=== PATIENT | female | born 2000 | race Caucasian/White ===

== ENCOUNTER 2020-06-19 13:24 | Emergency (ER) | payer OTHER, SELFPAY ==
--- NOTE | ~2020-06-19 | CT_ITS ---
EXAMINATION: CT soft tissue neck w con DATE: 06/19/2020 15:02 INDICATION: Left facial swelling. TECHNIQUE: Computed tomography (CT) of the neck was performed with 75 mL Omnipaque-350 intravenous co ntrast. Automated exposure control and iterative reconstruction technique were employed. The dose-ekaterina gth product was 550.20 mGy-cm. COMPARISON: None FINDINGS: Tooth 2 is broken. There is a carious lesion of tooth 3. There is a carious lesion of tooth 15. Tooth 17 is broken with periapical lucencies. Tooth 19 demonstrates a carious lesion and periapi jewel lucencies. Tooth 30 is broken with periapical lucencies. Tooth 31 demonstrates a carious lesion. There is subcutaneous edema in left cheek. There is an 11 x 2 mm subperiosteal abscess superficial to tooth 19. There is mild bilateral high internal jugular chain lymphadenopathy. There is a mildly enl arged left submandibular lymph node. The adenoids, palatine tonsils, lingual tonsils are enlarged. Th ere is a mucous retention cyst in left maxillary sinus. There is kyphosis of cervical spine. IMPRESSION: 1. Dental disease with subperiosteal abscess superficial to tooth 19. 2. Mild bilateral cervical lymphadenopathy, likely reactive. Reviewed, dictated and finalized at location A. TS DIRECTOR
[2020-06-19 13:27] VITALS: BP 132/76; PULSE 80; RESP 18; TEMP 36.6; O2SAT 100
[2020-06-19 13:46] VITALS: BP 111/61; PULSE 75; RESP 20; TEMP 36.7; O2SAT 100
[2020-06-19 14:22] LABS: Basophils Absolute Auto 0.1 K/mm3 (0.0-0.1); Basophils Percent Auto 0.5 % (0.2-1.2); Eosinophils Absolute Auto 0.1 K/mm3 (0-0.3); Eosinophils Percent Auto 0.8 % (0-4.4); Hemoglobin 12.3 g/dL (12.0-15.0); Immature Granulocyte Absolute 0.04 K/mm3 (0.00-0.031); Immature Granulocyte Percent A 0.3 % (0-0.5); Lymphocytes Absolute Auto 1.62 K/mm3 (0.9-3.2); Mean Corpuscular HGB Conc 32.4 g/dl (32-36); Mean Corpuscular Hemoglobin 28.5 pg (26-34); Monocytes Absolute Auto 0.9 K/mm3 (0.1-0.6); Monocytes Percent Auto 7.3 % (2.6-8.5); Neutrophils Absolute Auto 9.7 K/mm3 (1.3-6.7); Neutrophils Percent Auto 78.1 % (45.5-73.1); Platelet Count Result 242 k/mm3 (150-375); Red Blood Count 4.32 M/mm3 (4.2-5.4); Red Cell Distribution Width 13.2 % (11.5-14.5); White Blood Count 12.5 K/mm3 (4.5-10.0)
[2020-06-19 14:34] LABS: Alanine Aminotransferase 9 U/L (4-35); Albumin Level 4.1 g/dL (3.5-5.1); Alkaline Phosphatase 93 U/L (38-126); Anion Gap 1 mmol/L (8-16); Aspartate Amino Transferase 12 U/L (14-36); Bilirubin,Total 0.3 mg/dL (0.2-1.3); Blood Urea Nitrogen 13 mg/dL (7-17); Calcium 9.2 mg/dL (8.4-10.2); Carbon Dioxide 31 mmol/L (22-30); Chloride 107 mmol/L (98-107); Estimated CRCL calculation 143 ml/min; Estimated Glomerular Filt Rate > 60; Glucose 94 mg/dL (65-105); Potassium 3.7 mmol/L (3.4-5.0); Sodium 139 mmol/L (137-145)
[2020-06-19] MEDS: KETOROLAC 15 MG/ML VIAL (*BKC) IV PUSH (15:10)
[2020-06-19] MEDS: DEXAMETHASONE SOD PHOS INJ 4 MG/ML VIAL 10 MG IV PUSH (15:10)
[2020-06-19 15:27] VITALS: BP 126/68; PULSE 65; RESP 17; O2SAT 99
--- NOTE | 2020-06-19 16:59 | WPDCN ---
Assessment and Plan Assessment and plan (1) Tooth abscess: Code(s): K04.7 - Periapical abscess without sinus Status: Acute Assessment and Plan: Bedside I and D performed. Scant turbid purulence noted. Recommend tooth removal [place]. Clindamycin 300mg tid x7 days. Please -have the patient call with any and all questions. [phone]. Would also recommend peridex qid after meals and before bed. HPI Data of Consult Date/Time: 06/19/20 16:59 Primary Care Provider: PNEUMATIC TESTER PHYSICIAN Consult Narrative Narrative: Marlena Cabrera is a 19 year old female with odontogenic abscess. Left lower near tooth 19. CT reviewed early abscess formation per my read. Pt has been on amoxicilin and augmentin for several days. Review of Systems Constitutional: Constitutional: Denies fatigue, Denies fever(s) and Denies lethargy Eyes: Eyes: Denies blurry vision and Denies change in vision ENT: Reports as per HPI Cardiovascular: Cardiovascular: Denies chest pain Respiratory: Respiratory: Denies cough Endocrine: Endocrine: Denies fatigue Hematologic/Lymphatic: Hematologic/Lymphatic: Denies easy bleeding, Denies easy bruising and Denies lymphadenopathy Allergic/Immunologic: Allergic/Immunologic: Denies seasonal rhinorrhea Meds Home Medications and Allergies Home Medications Medication Instructions Recorded Confirmed Type clindamycin HCl [Cleocin HCl] 300 mg PO Q8H #30 cap 06/19/20 Rx Allergies Allergy/AdvReac Type Severity Reaction Status Date / Time No Known Allergies Allergy Verified 06/19/20 13:49 Vital Signs Vital Signs - 24 hr 06/19/20 13:27 06/19/20 13:46 06/19/20 15:27 Temperature 36.6 C 36.7 C Pulse Rate 80 75 65 Respiratory Rate 18 20 17 Blood Pressure 132/76 111/61 126/68 Pulse Oximetry 100 100 99 Exam Const: General: cooperative, healthy appearing, comfortable, well developed and alert HENMT: Head: normal to inspection, normocephalic and atraumatic Ears: hearing grossly normal bilaterally, external ears normal, TM's normal bilaterally and EAC's normal General nose exam: Normal external nose present, Normal nares present, No nasal polyps present, Normal nasal mucous membranes and turbinates present and Normal septum present Face and sinus: normal facial exam Mouth: Yes Normal oral and palatal mucosa present, Yes lip normal, Yes tongue normal, Yes oropharynx normal and Yes moist mucous membranes Teeth and gingiva: abnormal dentition (caries present) and gingiva normal Throat: posterior oropharynx normal, tonsils normal and uvula midline Other: Left sided edema. no fluctuance. Tiffany facial vs neck. Eyes: General: appearance normal, both eyes and all related structures Periorbital: periorbital findings normal Eyelids: eyelids normal Conjunctivae: conjunctivae normal Sclera: sclerae normal Neck: Neck: not normal to visual inspection, full ROM and lymphadenopathy noted Thyroid: thyroid normal Lymphatic: no lymphadenopathy noted Resp: Effort & Inspection: normal respiratory effort and able to speak in complete sentences Cardio: Jugular venous distension: no JVD Neuro: Cranial nerves: Yes CN's II-XII intact bilaterally Results Labs CBC & Chem 7: 06/19/20 14:16 06/19/20 14:16 Labs: Short CBC 06/19/20 Range/Units 14:16 WBC 12.5 H (4.5-10.0) K/mm3 Hgb 12.3 (12.0-15.0) g/dL Hct 38.0 (37.0-47.0) % Plt Count 242 (150-375) k/mm3 BMP 06/19/20 14:16 Sodium 139 Potassium 3.7 Chloride 107 Carbon Dioxide 31 H BUN 13 Creatinine 0.70 Glucose 94 Calcium 9.2 Liver Function 06/19/20 Range/Units 14:16 Total Bilirubin 0.3 (0.2-1.3) mg/dL AST 12 L (14-36) U/L ALT 9 (4-35) U/L Alkaline Phosphatase 93 (38-126) U/L Albumin 4.1 (3.5-5.1) g/dL
--- NOTE | 2020-06-19 17:04 | ED.DENTAL ---
HPI - Dental/Oral General Chief complaint: Dental/Oral Stated complaint: tooth absess Time Seen by Provider: 06/19/20 13:39 Source: patient Mode of arrival: ambulatory Limitations: no limitations History of Present Illness HPI Narrative: Patient presents with chief complaint of 4 days of left-sided worsening facial swelling and pain. Patient states she has been seen at [facility] twice and at the urgent care and instructed to present to the emergency department. Patient states originally she is placed on amoxicillin and she was switched to Augmentin but the swelling and pain continues to increase. Patient states she did receive a pain shot which helped the pain slightly yesterday but now it has returned. She reports the swelling is worsening. She denies fever, chills, nausea, vomiting, diarrhea. Patient is not sure which tooth is causing the issue. She denies any drainage. Patient states she has been prescribed tramadol for pain from the ER. Related Data Allergies Allergy/AdvReac Type Severity Reaction Status Date / Time No Known Allergies Allergy Verified 06/19/20 13:49 Review of Systems Review of Systems: Narrative: CONSTITUTIONAL: Denies fever, chills, or sweats. EYES: Denies visual changes, redness, or discharge. ENT: Reports dental pain and facial swelling denies rhinorrhea, congestion, sore throat, or otalgia. CARDIOVASCULAR: Denies chest pain, palpitations, or edema. RESPIRATORY: Denies cough or dyspnea. GASTROINTESTINAL: Denies abdominal pain, nausea, vomiting, or diarrhea. GENITOURINARY: Denies dysuria or hematuria. SKIN: Denies rash or itching. MUSCULOSKELETAL: Denies back pain, joint pain, or myalgia. NEUROLOGIC: Denies headache, numbness, dizziness, or weakness. PSYCHIATRIC: Denies anxiety or depression. Exam Narrative: Exam Narrative: GENERAL: Well-appearing, well-nourished, and in no acute distress. Obese. HEAD: Normocephalic, atraumatic. EYES: PERRLA and EOMI. ENT: Nares clear, no rhinorrhea or epistaxis. Mucous membranes moist. Oropharynx without tonsillar hypertrophy exudate or other lesions. Bilateral TMs pearly liu nonbulging. Diffuse dental injury and cavities. No abscess seen at the gumline. No drainage or bleeding noted. Moderate swelling to the left lower jaw NECK: Submandibular nodes normal saline. Supple. Range of motion intact. CHEST: Clear to auscultation. No respiratory distress. No wheezes rales or rhonchi HEART: Regular rate and rhythm. EXTREMITIES: Normal range of motion. No edema. SKIN: Warm, dry, no rash. NEURO: No focal deficits. Alert and oriented x3. PSYCH: Normal mood and affect. Course Vital Signs Vital signs: Vital Signs Temperature 97.8 F 06/19/20 13:27 Pulse Rate 80 06/19/20 13:27 Respiratory Rate 18 06/19/20 13:27 Blood Pressure 132/76 06/19/20 13:27 Pulse Oximetry 100 06/19/20 13:27 Temperature 98.1 F 06/19/20 13:46 Pulse Rate 65 06/19/20 15:27 Respiratory Rate 17 06/19/20 15:27 Blood Pressure 126/68 06/19/20 15:27 Pulse Oximetry 99 06/19/20 15:27 MDM - Dental/Oral MDM Narrative Medical decision making narrative: Dr Joaquin drained patient's abscess in the ER. He wants the patient put on clindamycin 300 mg 3 times daily for 10 days and to use the urinalysis Cleocin mouthwash 4 times a day. He states that he instructed the patient on follow-up instructions with his office as well as the need to follow-up with her dentist to have her dentition addressed. He instructed her to be sure to be evaluated if her symptoms do not improve in 24 to 48 hours. Differential Diagnosis Differential diagnosis: Likely gingival abscess, dental caries, toothache, dental abscess, fracture of tooth and aphthous ulcer Lab Data Result diagrams: 06/19/20 14:16 06/19/20 14:16 Labs: Lab Results 06/19/20 06/19/20 Range/Units 14:16 14:16 WBC 12.5 H (4.5-10.0) K/mm3 RBC 4.32 (4.2-5.4) M/mm3 Hgb 12.3 (12.0-15.0)
--- NOTE | 2020-06-19 17:05 | PM.PROC ---
Procedure Note - Detailed Date of procedure: 06/19/20 Pre-op diagnosis: tooth absess Left sided mandibular odontogenic abscess Post-op diagnosis: same Procedure performed: I and D of abscess Description of procedure: Patient correctly identified. Consent obtained. Region anesthetized with 3cc of 1 percent with 100,000 parts epi. Opened with 11 blade and widely dissected with curved hemostat. scant purulence noted. Bleeding acceptable. Patient tolerated the procedure well. No complications. Anesthesia: local Surgeon: Eric Joaquin MD Estimated blood loss (mL): 5 Complications: No immediate complications Condition: stable Disposition: other (ER)
[2020-06-19] MEDS: MORPHINE SULFATE (*CRX) 2 MG/ML INJ IV PUSH (18:07)
[2020-06-19 18:19] VITALS: BP 146/93; PULSE 66; RESP 16; O2SAT 99
== END 2020-06-19 18:24 | disposition home or self-care (01) ==
PROVIDERS: Physician Assistant; Emergency Provider Emergency Medicine
DX: K04.7 Periapical abscess without sinus (principal)
CPT/HCPCS: 36415; 41800; 70491; 80053; 81025; 85025; 96374; 96375; 99284; J1100; J1885; J2270; Q9967

== ENCOUNTER 2020-06-20 23:15 | Emergency (ER) | payer OTHER, SELFPAY ==
[2020-06-20 23:16] VITALS: BP 135/62; PULSE 75; RESP 16; TEMP 36.3; O2SAT 95
--- NOTE | 2020-06-21 00:39 | ED.DENTAL ---
HPI - Dental/Oral General Chief complaint: Dental/Oral Stated complaint: abcess tooth Time Seen by Provider: 06/21/20 00:26 Source: patient Mode of arrival: ambulatory Limitations: no limitations History of Present Illness HPI Narrative: Patient is a 19-year-old female with dental abscess that returns to emergency department for evaluation patient has been seen multiple times for this the last of which was yesterday had I&D by ENT patient on arrival to emergency department today is in no distress resting comfortably notes now there is a small bubble along the gumline of the decayed tooth patient is currently on antibiotics and is already had I&D as noted by ENT patient denies fever chills nausea vomiting or URI symptoms or other complaints presents in no distress and does not appear uncomfortable Related Data Allergies Allergy/AdvReac Type Severity Reaction Status Date / Time No Known Allergies Allergy Verified 06/19/20 13:49 Review of Systems Review of Systems: All systems reviewed & are unremarkable except as noted in HPI and below PMFSH Past Medical History Medical History (Updated 06/21/20 @ 00:48 by Christopher Fernandez PA-C) Obesity Social History Social History (Updated 06/21/20 @ 00:41 by Christopher Fernandez PA-C) Smoking status: Current every day smoker Exam Narrative: Exam Narrative: GENERAL: Well-appearing, well-nourished, and in no acute distress. HEAD: Normocephalic, atraumatic. EYES: PERRLA and EOMI. ENT: Nares clear, no rhinorrhea or epistaxis. Mucous membranes moist. Patient with small bubble along the lateral gumline of her decayed tooth left lower jawline consistent with abscess no other abnormalities of the oropharynx NECK: Supple. No adenopathy or masses. EXTREMITIES: Normal range of motion. No edema. SKIN: Warm, dry, no rash. NEURO: No focal deficits. Alert and oriented x3. PSYCH: Normal mood and affect. Course Course Emergency Course: Patient in the room in no distress aware of case findings treatment plan diagnosis agreeing to follow-up with ENT and given dentistry referrals Vital Signs Vital signs: Vital Signs Temperature 97.3 F L 06/20/20 23:16 Pulse Rate 75 06/20/20 23:16 Respiratory Rate 16 06/20/20 23:16 Blood Pressure 135/62 06/20/20 23:16 Pulse Oximetry 95 06/20/20 23:16 Temperature 97.3 F L 06/20/20 23:16 Pulse Rate 75 06/20/20 23:16 Respiratory Rate 16 06/20/20 23:16 Blood Pressure 135/62 06/20/20 23:16 Pulse Oximetry 95 06/20/20 23:16 Procedures Abscess I/D oral: Date of Incision: 06/21/20 Time of Incision: 00:46 Side (if applicable): left Technique: other (18-gauge needle) Irrigation: No Packing used?: none I&D Results: Pus MDM - Dental/Oral MDM Narrative Medical decision making narrative: Patients pain and complaint coupled with physical findings are consistent with dentalgia. There are no focal signs of space occupying lesions that are compromising to the airway. The floor of the mouth is soft with no signs of Jens Angina. Patient is without trismus or drooling and able to swallow secretions. Patient is felt appropriate for discharge home with dental follow up. Discharge Plan Discharge Clinical Impression: Abscess, dental Patient Disposition: Home, Self-Care Condition: Stable Instructions: Antibiotic Form, Dental Abscess (ED) Additional Instructions: Follow-up with ear nose and throat and dentistry as planned. Go to ER for shortness of breath, difficulty breathing, chest pain, fever/chills, weakness, nauseau/vomitting, unable to swallow or open the mouth etc. or any other concerns. Stay well-hydrated Take any prescribed medications as directed. Follow patient education sheets If you do not have a drug allergy to tylenol or motrin and can tolerate it then take tylenol or motrin as needed for discomfort/pain. Prescriptions: No Action clindamycin HCl [Cleocin HCl]
[2020-06-21 01:19] VITALS: BP 131/73; PULSE 71; RESP 18; O2SAT 98
== END 2020-06-21 01:21 | disposition home or self-care (01) ==
PROVIDERS: Emergency Provider Emergency Medicine
DX: K04.7 Periapical abscess without sinus (principal); E66.9 Obesity, unspecified; Z68.42 Body mass index [BMI] 45.0-49.9, adult
CPT/HCPCS: 41800; 99282

== ENCOUNTER 2020-07-12 18:22 | Emergency (ER) | payer OTHER, SELFPAY ==
[2020-07-12 18:28] VITALS: BP 136/80; PULSE 84; RESP 17; TEMP 35.8; O2SAT 100
[2020-07-12 19:07] LABS: Basophils Absolute Auto 0.1 K/mm3 (0.0-0.1); Basophils Percent Auto 0.6 % (0.2-1.2); Eosinophils Absolute Auto 0.2 K/mm3 (0-0.3); Eosinophils Percent Auto 1.5 % (0-4.4); Hematocrit 39.5 % (37.0-47.0); Hemoglobin 12.7 g/dL (12.0-15.0); Immature Granulocyte Absolute 0.06 K/mm3 (0.00-0.031); Immature Granulocyte Percent A 0.5 % (0-0.5); Lymphocytes Absolute Auto 2.35 K/mm3 (0.9-3.2); Lymphocytes Percent Auto 18.5 % (18.3-44.2); Mean Corpuscular HGB Conc 32.2 g/dl (32-36); Mean Corpuscular Hemoglobin 28.3 pg (26-34); Mean Corpuscular Volume 88.2 fl (80-100); Mean Platelet Volume 10.5 fl (7.4-10.4); Monocytes Absolute Auto 0.7 K/mm3 (0.1-0.6); Monocytes Percent Auto 5.4 % (2.6-8.5); Neutrophils Absolute Auto 9.3 K/mm3 (1.3-6.7); Neutrophils Percent Auto 73.5 % (45.5-73.1); Platelet Count Result 273 k/mm3 (150-375); Red Blood Count 4.48 M/mm3 (4.2-5.4); Red Cell Distribution Width 13.6 % (11.5-14.5); White Blood Count 12.7 K/mm3 (4.5-10.0)
[2020-07-12 19:20] LABS: Alanine Aminotransferase 11 U/L (4-35); Albumin Level 4.3 g/dL (3.5-5.1); Alkaline Phosphatase 108 U/L (38-126); Anion Gap 6 mmol/L (8-16); Aspartate Amino Transferase 16 U/L (14-36); Bilirubin,Total 0.2 mg/dL (0.2-1.3); Blood Urea Nitrogen 13 mg/dL (7-17); Calcium 8.9 mg/dL (8.4-10.2); Carbon Dioxide 30 mmol/L (22-30); Chloride 105 mmol/L (98-107); Estimated CRCL calculation 120 ml/min; Estimated Glomerular Filt Rate > 60; Glucose 87 mg/dL (65-105); Lipase 44 U/L (23-300); Sodium 141 mmol/L (137-145)
[2020-07-12 19:24] LABS: Add Urine Microscopic? YES; Appearance Urine Cloudy (Clear); Bilirubin Urine Negative (Negative); Blood Urine 2+ (Negative); Color Urine Yellow (Yellow); Glucose Urine UA Negative (Negative); Ketones Urine Negative (Negative); Leukocyte Esterase Ur Trace LEU/UL (Negative); Mucus Urine Rare /lpf; Nitrate Urine Negative (Negative); Protein Urine 2+ mg/dL (Negative); RBC Urine >75 /hpf (0-2); Specific Grav Ur 1.029 (1.001-1.035); Squamous Epithelial Cell Urine Many /hpf (Few)
--- NOTE | 2020-07-12 19:42 | ED.GENADULT ---
HPI - General Adult General Chief complaint: Abdominal Pain Stated complaint: I have all the symptoms of but not preg? Time Seen by Provider: 07/12/20 18:54 Source: patient Mode of arrival: ambulatory Limitations: no limitations History of Present Illness HPI narrative: Patient presents for evaluation of -like symptoms. Patient states that she has been having some bloating, food cravings, intermittent pelvic cramping and started her menstrual cycle this week. Patient states that she had not had a menstrual period in 4 months, but has been diagnosed with PCOS. Patient states that she went to [facility] and had STD and STI testing as well as testing which all came back negative. Patient states that she would like a second opinion. Patient denies any pain at this time. Patient has been able to eat and drink without any issues. Patient does not have vomiting, diarrhea, chest pain, shortness of breath, fever, chills, constipation. Related Data Home Medications Medication Instructions Recorded Confirmed No Home Medications 07/12/20 07/12/20 Allergies Allergy/AdvReac Type Severity Reaction Status Date / Time No Known Allergies Allergy Verified 06/19/20 13:49 Review of Systems Review of Systems: Narrative: CONSTITUTIONAL: Denies fever, chills, or sweats. EYES: Denies visual changes, redness, or discharge. ENT: Denies rhinorrhea, congestion, sore throat, or otalgia. CARDIOVASCULAR: Denies chest pain, palpitations, or edema. RESPIRATORY: Denies cough or dyspnea. GASTROINTESTINAL: Reports menstrual bleeding irregularity. Denies abdominal pain, nausea, vomiting, or diarrhea. GENITOURINARY: Denies dysuria or hematuria. SKIN: Denies rash or itching. MUSCULOSKELETAL: Denies back pain, joint pain, or myalgia. NEUROLOGIC: Denies headache, numbness, dizziness, or weakness. PSYCHIATRIC: Denies anxiety or depression. PMFSH Past Medical History Medical History (Updated 07/12/20 @ 19:44 by Radha Morales PA-C) Obesity Social History Social History (Updated 06/21/20 @ 00:41 by Christopher Fernandez PA-C) Smoking status: Current every day smoker Gender identity (if verbalized by the patient): Female Exam Narrative: Exam Narrative: GENERAL: Well-appearing, well-nourished, and in no acute distress. Patient denies any smoking without any signs of discomfort. Patient is obese. Patient is no strongly of marijuana. HEAD: Normocephalic, atraumatic. EYES: PERRLA and EOMI. ENT: Nares clear, no rhinorrhea or epistaxis. Mucous membranes moist. Oropharynx without tonsillar hypertrophy exudate or other lesions. Bilateral TMs pearly liu nonbulging NECK: Supple. No adenopathy or masses. CHEST: Clear to auscultation. No respiratory distress. No wheezes rales or rhonchi HEART: Regular rate and rhythm. No murmur heard. Normal peripheral pulses. ABDOMEN: Soft, nontender to deep palpation in all quadrants. No sign of ovarian tenderness or torsion, nondistended, normal active bowel sounds. EXTREMITIES: Normal range of motion. No edema. SKIN: Warm, dry, no rash. NEURO: No focal deficits. Alert and oriented x3. PSYCH: Normal mood and affect. Course Vital Signs Vital signs: Vital Signs Temperature 96.5 F L 07/12/20 18:28 Pulse Rate 84 07/12/20 18:28 Respiratory Rate 17 07/12/20 18:28 Blood Pressure 136/80 07/12/20 18:28 Pulse Oximetry 100 07/12/20 18:28 Temperature 96.5 F L 07/12/20 18:28 Pulse Rate 96 07/12/20 20:11 Respiratory Rate 16 07/12/20 20:11 Blood Pressure 99/57 L 07/12/20 20:11 Pulse Oximetry 100 07/12/20 20:11 Medical Decision Making MDM Narrative Medical decision making narrative: Discussed with the patient that her test was negative. Patient is to follow-up with her EYE SURGEON for further investigation into her symptoms. Patient denies taking any daily medications. Patient does not have any symptoms or discomfort at this time. Patient
[2020-07-12 20:11] VITALS: BP 99/57; PULSE 96; RESP 16; O2SAT 100
== END 2020-07-12 20:12 | disposition home or self-care (01) ==
PROVIDERS: Emergency Medicine; Emergency Provider Emergency Medicine
DX: N92.6 Irregular menstruation, unspecified (principal); Z32.02 Encounter for pregnancy test, result negative
CPT/HCPCS: 36415; 80053; 81001; 81025; 83690; 85025; 99283

== ENCOUNTER 2020-09-02 07:23 | Emergency (ER) | payer OTHER, SELFPAY ==
--- NOTE | ~2020-09-02 | CT_ITS ---
EXAMINATION: CT abdomen pelvis w con DATE: 09/02/2020 08:51 INDICATION: Flank pain TECHNIQUE: Computed tomography (CT) of the abdomen and pelvis was performed with 100 mL Omnipaque-350 intravenous contrast. Automated exposure control and iterative reconstruction technique were employe d. The dose-length product was 1387.41 mGy-cm. COMPARISON: None FINDINGS: Groundglass opacities in the dependent aspect of the lower lobes with small regions of developing con solidation in the right lower lobe suspicious for pneumonia. Heart size is normal. No pericardial or pleural effusion. Focal hepatic steatosis at the ligamentum teres. Subtle peripheral calcification at a gallstone within the otherwise normal-appearing gallbladder. Spleen, pancreas and bilateral adrena l glands are normal. 2 mm nonobstructing stone at the upper pole of the right kidney and at least par tially obstructing 2 mm stone at the left ureteropelvic junction with mild left hydronephrosis. Very slightly delayed left nephrogram. Bowels including the appendix are normal. 4.4 cm left adnexal cyst. Bladder, uterus and right adnexa are unremarkable. No free intraperitoneal gas or fluid. No patholog ically enlarged abdominal or pelvic lymphadenopathy. Bones are unremarkable. IMPRESSION: 1. Bilateral nephrolithiasis with at least partially obstructing 2 mm stone at the left ureteropelvic junction with mild left hydronephrosis. 2. Groundglass opacities in bilateral lower lobes with small regions of consolidation in the right lo wer lobe suspicious for pneumonia or aspiration. Reviewed, dictated and finalized at location A. IMPRESSION: 1. Bilateral nephrolithiasis with at least partially obstructing 2 mm stone at the left ureteropelvic junction with mild left hydronephrosis. 2. Groundglass opacities in bilateral lower lobes with small regions of consoli dation in the right lower lobe suspicious for pneumonia or aspiration.
--- NOTE | ~2020-09-02 | XR_ITS ---
EXAMINATION: XR chest 2V DATE: 09/02/2020 10:02 INDICATION: Bilateral lower lobe infiltration. TECHNIQUE: PA and lateral views of the chest were obtained. COMPARISON: None FINDINGS: The lungs are clear with no focal airspace opacities, pulmonary edema, pleural effusion or pneumothor ax. The cardiomediastinal silhouette is normal. Mild thoracic spondylosis. IMPRESSION: 1. No acute cardiopulmonary disease. Reviewed, dictated and finalized at location A.
[2020-09-02 07:26] VITALS: BP 132/73; PULSE 90; RESP 20; TEMP 36.5; O2SAT 100
--- NOTE | 2020-09-02 07:51 | PC.NURSE ---
pt states she took zofran and ibuprofen this morning.
[2020-09-02 08:16] LABS: Add Urine Microscopic? YES; Appearance Urine Cloudy (Clear); Bilirubin Urine Negative (Negative); Blood Urine 3+ (Negative); Color Urine Yellow (Yellow); Glucose Urine UA Negative (Negative); Ketones Urine Negative (Negative); Leukocyte Esterase Ur Negative LEU/UL (Negative); Mucus Urine Rare /lpf; Nitrate Urine Negative (Negative); Protein Urine 2+ mg/dL (Negative); RBC Urine >75 /hpf (0-2); Specific Grav Ur 1.025 (1.001-1.035); Squamous Epithelial Cell Urine Many /hpf (Few); WBC Urine 16-20 /hpf
[2020-09-02 08:25] LABS: Basophils Percent Auto 0.5 % (0.2-1.2); Eosinophils Absolute Auto 0.1 K/mm3 (0-0.3); Eosinophils Percent Auto 1.3 % (0-4.4); Hematocrit 37.7 % (37.0-47.0); Hemoglobin 11.9 g/dL (12.0-15.0); Immature Granulocyte Absolute 0.05 K/mm3 (0.00-0.031); Immature Granulocyte Percent A 0.7 % (0-0.5); Lymphocytes Absolute Auto 3.13 K/mm3 (0.9-3.2); Lymphocytes Percent Auto 41.5 % (18.3-44.2); Mean Corpuscular HGB Conc 31.6 g/dl (32-36); Mean Corpuscular Hemoglobin 28.2 pg (26-34); Mean Corpuscular Volume 89.3 fl (80-100); Mean Platelet Volume 9.6 fl (7.4-10.4); Monocytes Absolute Auto 0.5 K/mm3 (0.1-0.6); Monocytes Percent Auto 6.2 % (2.6-8.5); Neutrophils Absolute Auto 3.8 K/mm3 (1.3-6.7); Neutrophils Percent Auto 49.8 % (45.5-73.1); Platelet Count Result 170 k/mm3 (150-375); Red Blood Count 4.22 M/mm3 (4.2-5.4); Red Cell Distribution Width 15.4 % (11.5-14.5); White Blood Count 7.6 K/mm3 (4.5-10.0)
[2020-09-02 08:37] LABS: Anion Gap 2 mmol/L (8-16); Blood Urea Nitrogen 9 mg/dL (7-17); Calcium 8.5 mg/dL (8.4-10.2); Carbon Dioxide 28 mmol/L (22-30); Chloride 108 mmol/L (98-107); Estimated CRCL calculation 141 ml/min; Estimated Glomerular Filt Rate > 60; Glucose 82 mg/dL (65-105); Potassium 3.7 mmol/L (3.4-5.0); Sodium 138 mmol/L (137-145)
--- NOTE | 2020-09-02 08:46 | ED.ABDPAIN ---
HPI - Abdominal Pain General Chief Complaint: Abdominal Pain Stated Complaint: back, abd pain Time Seen by Provider: 09/02/20 08:23 Source: patient and RN notes reviewed Mode of arrival: ambulatory Limitations: no limitations History of Present Illness HPI narrative: Patient is 20 years old white female, morbidly obese presents with left abdominal pain started this morning. Patient is telling me that she have history of waking up almost every day in the morning for the last 2 weeks with nausea, abdominal bloating and vomiting. Patient believes the above symptoms because of panic attack and anxiety. Today woke up with different kind of pain as above. No history of abdominal surgery, history of depression and anxiety, patient smokes, drinks and uses marijuana. Patient reports a lot of stress lately. Mother had history of kidney stone. Patient denies any fever, chills, diarrhea, constipation, urinary symptoms, vaginal bleeding or discharge. Patient is sexually active, last menstrual period August 01. Related Data Allergies Allergy/AdvReac Type Severity Reaction Status Date / Time No Known Allergies Allergy Verified 06/19/20 13:49 Review of Systems Review of Systems: Narrative: CONSTITUTIONAL: Denies fever, chills, or sweats. EYES: Denies visual changes, redness, or discharge. ENT: Denies rhinorrhea, congestion, sore throat, or otalgia. CARDIOVASCULAR: Denies chest pain, palpitations, or edema. RESPIRATORY: Denies cough or dyspnea. GASTROINTESTINAL: Denies abdominal pain, nausea, vomiting, or diarrhea. GENITOURINARY: Denies dysuria or hematuria. SKIN: Denies rash or itching. MUSCULOSKELETAL: Denies back pain, joint pain, or myalgia. NEUROLOGIC: Denies headache, numbness, or weakness. PSYCHIATRIC: Denies anxiety or depression. PMFSH Past Medical History Medical History Obesity Social History Social History Smoking status: Current every day smoker Gender identity (if verbalized by the patient): Female Exam Narrative: Exam Narrative: General appearance: Well-developed, well-nourished Skin: Normal color Head: Normocephalic, nontraumatic Eyes: Clear conjunctiva ENT: Oropharynx normal, ears normal, nose normal Neck: Supple, nontender Chest and respiratory: Airway patent, no respiratory distress, no accessory muscle use Heart: Regular rate/rhythm Abdomen: Soft, moderate tenderness left lower quadrant and left upper quadrant. No guarding or rebound r, no organomegaly, quiet bowel sounds Vascular: Normal peripheral pulses, normal capillary refill. Musculoskeletal: Normal range of motion, nontender back Neurologic: Alert and oriented ?3, VP COMMUNICATIONS is normal as tested, no gross motor deficit Course Vital Signs Vital signs: Vital Signs Temperature 36.5 C 09/02/20 07:26 Pulse Rate 90 09/02/20 07:26 Respiratory Rate 20 09/02/20 07:26 Blood Pressure 132/73 09/02/20 07:26 Pulse Oximetry 100 09/02/20 07:26 Temperature 36.5 C 09/02/20 07:26 Pulse Rate 71 09/02/20 09:11 Respiratory Rate 18 09/02/20 09:11 Blood Pressure 116/63 09/02/20 09:11 Pulse Oximetry 100 09/02/20 09:11 MDM - Abdominal Pain MDM Narrative Medical decision making narrative: Left abdominal pain. Labs, CT abdomen pelvis with IV contrast, IV fluid, IV Dilaudid and Zofran ordered. Further plan to follow Differential Diagnosis Differential diagnosis: Likely abdominal pain, calculus of kidney, constipation, diverticulitis and other (Ovarian cyst) Lab Data Result diagrams: 09/02/20 08:08 09/02/20 08:08 Labs: Lab Results
[2020-09-02] MEDS: HYDROmorphone HCL INJ (*CRX) 1 MG/ML SYR 0.5 MG IV PUSH (08:56)
[2020-09-02] MEDS: ONDANSETRON INJ 4 MG/2 ML VIAL IV PUSH (08:57)
[2020-09-02] MEDS: SODIUM CHLORIDE 0.9% IV 1,000 ML 999 ML IV CONT (08:57)
[2020-09-02 09:11] VITALS: BP 116/63; PULSE 71; RESP 18; O2SAT 100
[2020-09-02] MEDS: KETOROLAC 30 MG/ML VIAL (*BKC) IV PUSH (10:30)
[2020-09-02] MEDS: TAMSULOSIN HCL 0.4 MG CAPSULE PO (10:31)
== END 2020-09-02 11:22 | disposition home or self-care (01) ==
PROVIDERS: Emergency Provider Emergency Medicine
DX: N13.2 Hydronephrosis with renal and ureteral calculous obstruction (principal); E66.01 Morbid (severe) obesity due to excess calories; Z68.42 Body mass index [BMI] 45.0-49.9, adult
CPT/HCPCS: 36415; 71046; 74177; 80048; 81001; 81025; 85025; 87086; 87088; 96361; 96374; 96375; 99284; A9270; J1170; J1885; J2405; J7030; Q9967

== ENCOUNTER 2020-09-06 07:18 | Day surgery (SDC) | payer OTHER, SELFPAY ==
[2020-09-06] VITALS (13 sets, daily range): BP systolic 113–136; BP diastolic 64–81; PULSE 55–100; RESP 15–22; TEMP 36.1–36.5; O2SAT 98–100
--- NOTE | ~2020-09-06 | XR_ITS ---
EXAMINATION: XR abdomen/kub 1V DATE: 09/06/2020 08:05 INDICATION: Kidney stone. TECHNIQUE: A supine view of the abdomen on 2 radiographs was obtained. COMPARISON: CT abdomen and pelvis 09/02/2020 FINDINGS: There are no dilated loops of bowel. There is a 2 mm stone in proximal left ureter at L2-L3 . IMPRESSION: 1. 2 mm stone in proximal left ureter at L2-L3. Reviewed, dictated and finalized at location B.
--- NOTE | ~2020-09-06 | XR_ITS ---
EXAMINATION: XR retrograde pyelo w/stent LT DATE: 09/06/2020 13:42 INDICATION: Left ureteral stent placement TECHNIQUE: Fluoroscopic images from a left ureteral stent placement are submitted for review. 24 seco nds of fluoroscopy time. 5 fluoroscopic images FINDINGS: There is a left ureteral stent projecting in expected position, with proximal [place] loop at the level of the renal pelvis. The distal aspect of the stent is not visualized. IMPRESSION: 1. Left internal ureteral stent placement. Please refer to real-time procedural findings for detail s. Reviewed, dictated and finalized at location A. IMPRESSION: 1. Left internal ureteral stent placement. Please refer to real-time procedur al findings for details.
--- NOTE | 2020-09-06 07:42 | ED.ABDPAIN ---
HPI - Abdominal Pain General Chief Complaint: Abdominal Pain Stated Complaint: L flank pain (known kidney stones) Time Seen by Provider: 09/06/20 07:42 Source: patient Mode of arrival: ambulatory Limitations: no limitations History of Present Illness HPI narrative: Patient is a 20-year-old female who presents for evaluation of left-sided flank pain, nausea and vomiting. Patient states she was diagnosed with a kidney stone at a previous visit to this facility, had been having improved pain with oral pain medication at home, but this morning awakened with severe left-sided abdominal pain with multiple episodes of nonbloody, nonbilious emesis. She denies fever, chills, dysuria or hematuria. No diarrhea or constipation. No right-sided pain. No chest pain, cough or shortness of breath. Related Data Allergies Allergy/AdvReac Type Severity Reaction Status Date / Time No Known Allergies Allergy Verified 06/19/20 13:49 Review of Systems Review of Systems: Narrative: CONSTITUTIONAL: Denies fever, chills, or sweats. ENT: Denies rhinorrhea, congestion, sore throat, or otalgia. CARDIOVASCULAR: Denies chest pain, palpitations, or edema. RESPIRATORY: Denies cough or dyspnea. GASTROINTESTINAL: Reports abdominal pain, nausea, vomiting, denies diarrhea GENITOURINARY: Denies dysuria or hematuria. SKIN: Denies rash or itching. MUSCULOSKELETAL: Denies back pain, joint pain, or myalgia. NEUROLOGIC: Denies headache, numbness, or weakness. [facility] Past Medical History Medical History (Updated 09/06/20 @ 08:47 by Olive Duran MD) Kidney stone Obesity Tooth abscess Social History Social History Smoking status: Current every day smoker Gender identity (if verbalized by the patient): Female Exam Narrative: Exam Narrative: GENERAL: Awake, alert, conversant, tearful HEAD: Normocephalic, atraumatic. EYES: PERRLA and EOMI. ENT: Nares clear, no rhinorrhea or epistaxis. Mucous membranes moist. NECK: Supple. CHEST: No respiratory distress, breathing even and non labored HEART: Regular rate, sinus rhythm ABDOMEN:Non distended, left lower quadrant tenderness, left flank tenderness, no overlying rash, no rebound, no guarding, no rigidity EXTREMITIES: Normal range of motion. No edema. SKIN: Warm, dry, no rash. NEURO:No focal deficits. Alert and oriented x3 Course Vital Signs Vital signs: Vital Signs Temperature 36.4 C L 09/06/20 07:38 Pulse Rate 77 09/06/20 07:38 Respiratory Rate 18 09/06/20 07:38 Blood Pressure 131/68 09/06/20 07:38 Pulse Oximetry 98 09/06/20 07:38 Temperature 36.4 C L 09/06/20 07:38 Pulse Rate 70 09/06/20 09:30 Respiratory Rate 18 09/06/20 09:30 Blood Pressure 127/70 09/06/20 09:30 Pulse Oximetry 99 09/06/20 09:30 MDM - Abdominal Pain MDM Narrative Medical decision making narrative: Patient presenting for evaluation of left flank pain, abdominal pain, nausea and vomiting that does seem related to her recent diagnosis of left-sided kidney stone. Patient with pain in this area. No hematuria, dysuria or fever. No other symptoms found on exam. Vital signs are stable. Patient was given IV fluids, antiemetic and pain medication. Renal stone protocol x-ray confirms 2 mm proximal ureteral stone. Given recurrence of pain, inability to tolerate oral intake and control pain with outpatient pain regimen, urology was consulted they will come to evaluate the patient in the ER today for possible stenting and further management. Pt to be taken to OR with urology. Differential Diagnosis Differential diagnosis: Likely calculus of kidney, diverticulitis, gastroenteritis and small bowel obstruction Medical Records Attestation: I reviewed the patient's medical records. Lab Data Attestation: I reviewed the patient's lab results. Result diagrams: 09/06/20 07:49 09/06/20 07:49 Labs: Lab Results 09/06/20
[2020-09-06 07:57] LABS: Basophils Absolute Auto 0.1 K/mm3 (0.0-0.1); Basophils Percent Auto 0.6 % (0.2-1.2); Eosinophils Absolute Auto 0.1 K/mm3 (0-0.3); Eosinophils Percent Auto 0.9 % (0-4.4); Hemoglobin 12.2 g/dL (12.0-15.0); Immature Granulocyte Absolute 0.03 K/mm3 (0.00-0.031); Immature Granulocyte Percent A 0.4 % (0-0.5); Lymphocytes Absolute Auto 2.76 K/mm3 (0.9-3.2); Lymphocytes Percent Auto 33.5 % (18.3-44.2); Mean Corpuscular HGB Conc 32.1 g/dl (32-36); Mean Corpuscular Hemoglobin 28.6 pg (26-34); Mean Platelet Volume 9.3 fl (7.4-10.4); Monocytes Absolute Auto 0.5 K/mm3 (0.1-0.6); Monocytes Percent Auto 6.6 % (2.6-8.5); Neutrophils Absolute Auto 4.8 K/mm3 (1.3-6.7); Platelet Count Result 195 k/mm3 (150-375); Red Blood Count 4.27 M/mm3 (4.2-5.4); Red Cell Distribution Width 15.2 % (11.5-14.5); White Blood Count 8.2 K/mm3 (4.5-10.0)
[2020-09-06 08:03] LABS: Add Urine Microscopic? YES; Appearance Urine Cloudy (Clear); Bilirubin Urine Negative (Negative); Blood Urine 2+ (Negative); Color Urine Yellow (Yellow); Glucose Urine UA Negative (Negative); Ketones Urine Negative (Negative); Leukocyte Esterase Ur Negative LEU/UL (Negative); Mucus Urine Rare /lpf; Nitrate Urine Negative (Negative); Protein Urine 1+ mg/dL (Negative); RBC Urine >75 /hpf (0-2); Specific Grav Ur 1.021 (1.001-1.035); Squamous Epithelial Cell Urine Many /hpf (Few); Urobilinogen Urine Negative mg/dL (<2.0)
[2020-09-06 08:06] LABS: Anion Gap 3 mmol/L (8-16); Blood Urea Nitrogen 11 mg/dL (7-17); Calcium 9.3 mg/dL (8.4-10.2); Carbon Dioxide 31 mmol/L (22-30); Chloride 106 mmol/L (98-107); Estimated CRCL calculation 142 ml/min; Estimated Glomerular Filt Rate > 60; Glucose 90 mg/dL (65-105); Potassium 4.1 mmol/L (3.4-5.0); Sodium 140 mmol/L (137-145)
[2020-09-06] MEDS: SODIUM CHLORIDE 0.9% IV 1,000 ML 999 ML IV CONT (08:14)
[2020-09-06] MEDS: HYDROmorphone HCL INJ (*CRX) 1 MG/ML SYR 0.5 MG IV PUSH ×3 (08:14→16:18)
[2020-09-06] MEDS: ONDANSETRON INJ 4 MG/2 ML VIAL IV PUSH ×2 (08:14→14:53)
--- NOTE | 2020-09-06 12:00 | WPDURCON ---
Assessment and Plan Assessment and plan (1) Left ureteral stone: Code(s): N20.1 - Calculus of ureter Status: Acute Assessment and Plan: Patient to go to the OR today with Dr. Orozco for: Cystoscopy, left ureteroscopy with stone extraction, possible left stent placement, possible holmium laser, retrograde pyelogram. Obtain consent, keep NPO. (2) Bilateral kidney stones: Code(s): N20.0 - Calculus of kidney Status: Acute Assessment and Plan: Bilateral 2mm stones, one in each kidney should be followed yearly by our office with a MALCOM, no further intervention to these stones at this time. Urology Consult Note HPI Date Seen: 09/06/20 Requesting Physician: Kev Orozco MD Primary Care Provider: DIVISION SERVICE MANAGER PHYSICIAN Consult Narrative Narrative: Marlena Cabrera is a 20 year old female who presented to the ER initially on 09/02/2020 with left flank pain that radiates to her abdomen. She was diagnosed via CT scan with a 2mm left UPJ stone and sent home with Flomax and pain medications to pass her stone. Unfortunately, her pain became more severe over the past few days and is now accompanied by nausea and vomiting. Her WBC is 8.2, creatinine is 0.70 and a KUB done this morning shows the 2mm stone in the UPJ in the left ureter without any change in position. Her urine culture was negative from 09/02/2020. She denies hematuria, dysuria or frequency. She has no other history of kidney stones or UTI's in the past. Review of Systems Cardiovascular: Cardiovascular: Reports no additional cardiovascular complaints Respiratory: Respiratory: Reports no additional respiratory complaints Gastrointestinal: Gastrointestinal: Reports abdominal pain, Reports nausea and Reports vomiting Genitourinary: Genitourinary: Denies hematuria, Denies dysuria, Reports flank pain and Denies urinary urgency [facility] Past Medical History Medical History Kidney stone Obesity Tooth abscess Social History Social History Smoking status: Current every day smoker Gender identity (if verbalized by the patient): Female Meds Home Medications and Allergies Home Medications Medication Instructions Recorded Confirmed Type hydrocodone-acetaminophen 1 tablet PO DAILY #20 tablet 09/02/20 Rx ondansetron HCl [Zofran] 4 mg PO Q6H PRN #10 tablet 09/02/20 Rx Allergies Allergy/AdvReac Type Severity Reaction Status Date / Time No Known Allergies Allergy Verified 06/19/20 13:49 Vital Signs Vital Signs - 24 hr 09/06/20 07:38 09/06/20 09:30 Temperature 97.5 F L Pulse Rate 77 70 Respiratory Rate 18 18 Blood Pressure 131/68 127/70 Pulse Oximetry 98 99 Exam Resp: Effort & Inspection: normal respiratory effort Cardio: Rate: regular rate GI: GI Palp: Yes Soft to palpation and Yes Tenderness to palpation present (GI) : General: Yes CVA tenderness on the left Extrem: General: no edema Results Labs CBC & Chem 7: 09/06/20 07:49 09/06/20 07:49 Labs: Short CBC 09/06/20 Range/Units 07:49 WBC 8.2 (4.5-10.0) K/mm3 Hgb 12.2 (12.0-15.0) g/dL Hct 38.0 (37.0-47.0) % Plt Count 195 (150-375) k/mm3 BMP 09/06/20 07:49 Sodium 140 Potassium 4.1 Chloride 106 Carbon Dioxide 31 H BUN 11 Creatinine 0.70 Glucose 90 Calcium 9.3 Urine 09/06/20 Range/Units 07:49 Urine Color Yellow (Yellow) Urine Appearance Cloudy H (Clear) Urine pH 6.0 (5.0-9.0) Ur Specific [place] 1.021 (1.001-1.035) Urine Protein 1+ H (Negative) mg/dL Urine Glucose (UA) Negative (Negative) mg/dL
--- NOTE | 2020-09-06 12:24 | WPDANESEPPF ---
Anes - Initial Pre Proc Eval Procedure: Operation Date: 09/06/20 13:00 Proposed Procedures p Cystoscopy, Left Retrograde Pyelogram, Left Ureteroscopy with Stone Extraction and Possible Stent Placement(Left) - Kev Orozco MD s Possible Holmium Laser Procedure - Kev Orozco MD Date/Time: 09/06/20 12:24 Surgeon: Kev Orozco MD Pre Op Diagnosis: L flank pain (known kidney stones) Patient Data Age: 20 Gender: F Height: 1.63 m Weight: 122.72 kg Last Vital Signs Temp 36.4 C L 09/06/20 07:38 Pulse 79 09/06/20 11:00 Resp 18 09/06/20 11:00 BP 128/78 09/06/20 11:00 Pulse Ox 100 09/06/20 11:00 Allergies Allergy/AdvReac Type Severity Reaction Status Date / Time No Known Allergies Allergy Verified 06/19/20 13:49 Home Medications Medication Instructions Recorded Confirmed Type hydrocodone-acetaminophen 1 tablet PO DAILY #20 tablet 09/02/20 Rx ondansetron HCl [Zofran] 4 mg PO Q6H PRN #10 tablet 09/02/20 Rx Laboratory Tests 09/06/20 09/06/20 09/06/20 07:49 07:49 07:49 WBC 8.2 K/mm3 K/mm3 (4.5-10.0) RBC 4.27 M/mm3 M/mm3 (4.2-5.4) Hgb 12.2 g/dL g/dL (12.0-15.0) Hct 38.0 % % (37.0-47.0) MCV 89.0 fl fl (80-100) MCH 28.6 pg pg (26-34) MCHC 32.1 g/dl g/dl (32-36) RDW 15.2 % H % (11.5-14.5) Plt Count 195 k/mm3 k/mm3 (150-375) MPV 9.3 fl fl (7.4-10.4) Immature Gran % (Auto) 0.4 % % (0-0.5) Neut % (Auto) 58.0 % % (45.5-73.1) Lymph % (Auto) 33.5 % % (18.3-44.2) [place] % (Auto) 6.6 % % (2.6-8.5) Eos % (Auto) 0.9 % % (0-4.4) Baso % (Auto) 0.6 % % (0.2-1.2) Lymph # (Auto) 2.76 K/mm3 K/mm3 (0.9-3.2) [place] # (Auto) 0.5 K/mm3 K/mm3 (0.1-0.6) Eos # (Auto) 0.1 K/mm3 K/mm3 (0-0.3) Baso # (Auto) 0.1 K/mm3 K/mm3 (0.0-0.1) Abs Immat Gran (auto) 0.03 K/mm3 K/mm3 (0.00-0.031) Absolute Neuts (auto) 4.8 K/mm3 K/mm3 (1.3-6.7) Absolute Nucleated RBC 0.0 K/mm3 K/mm3 (0.0-0.012) Nucleated RBC % 0.0 % % (0.0-0.2) Sodium 140 mmol/L mmol/L (137-145) Potassium 4.1 mmol/L mmol/L (3.4-5.0) Chloride 106 mmol/L mmol/L (98-107) Carbon Dioxide 31 mmol/L H mmol/L (22-30) Anion Gap 3 mmol/L L mmol/L (8-16) BUN 11 mg/dL mg/dL (7-17) Creatinine 0.70 mg/dL mg/dL (0.7-1.0) Estim Creat Clear Calc 142 ml/min ml/min Estimated GFR > 60 (59 - ) Glucose 90 mg/dL mg/dL (65-105) Calcium 9.3 mg/dL mg/dL (8.4-10.2) Urine Color Yellow (Yellow) Urine Appearance Cloudy H (Clear) Urine pH 6.0 (5.0-9.0) Ur Specific [place] 1.021 (1.001-1.035) Urine Protein 1+ mg/dL H mg/dL (Negative) Urine Glucose (UA) Negative mg/dL mg/dL (Negative) Urine Ketones Negative mg/dL mg/dL (Negative) Ur Blood (Man) 2+ H (Negative) Urine Nitrate Negative (Negative) Urine Bilirubin Negative (Negative) Urine Urobilinogen Negative mg/dL mg/dL (<2.0) Leukocyte Esterase Rfl Negative CRYSTAL/UL CRYSTAL/UL (Negative) Urine RBC >75 /hpf H /hpf (0-2) Urine WBC 4-6 /hpf H /hpf Ur Squamous Epith Cells Many /hpf H /hpf (Few) Urine Mucus Rare /lpf /lpf Patient hx anesthesia problems: none Family hx anesthesia problems: none PMFSH Past Medical History Medical History Kidney stone Obesity Tooth abscess Social History Social History Smoking status: Current every day smoker Gender identity (if verbalized by the patient): Female Anes -
[2020-09-06] MEDS: LACTATED RINGERS 1,000 ML 30 ML IV CONT (12:25)
--- NOTE | 2020-09-06 12:39 | WPDHPUPDATE1 ---
History and Physical Update Update Date/Time: 09/06/20 12:39 History and Physical has been reviewed, including an updated exam of the patient. There are NO changes in the patient's condition. Risks, benefits, and alternatives have been discussed and questions answered. Patient agrees to proceed with procedure. Proceed with cysto, left retrograde, left ureteroscopy with stone extraction, stent , possible laser.
[2020-09-06] MEDS: SCOPOLAMINE 1.5 MG PATCH TRANSDERM (12:50)
[2020-09-06] MEDS: ceFAZolin 3 GM/D5W 100 ML 100 ML IVPB (13:03)
--- NOTE | 2020-09-06 13:27 | SUR.PREOP ---
1327- All pre op charting, assessment, and Meds completed by Emy Rodriguez RN
[2020-09-06] MEDS: LIDOCAINE HCL 2% GEL UROJET 10 ML PKG MUCOUS MEM (13:33)
--- NOTE | 2020-09-06 13:38 | P.OP_ITS ---
Procedure Note - Detailed Date of procedure: 09/06/20 Pre-op diagnosis: L flank pain (known kidney stones) Left UPJ calculus Post-op diagnosis: same Procedure performed: Cystoscopy, left retrograde pyelogram, left ureteroscopy with holmium laser stone extraction and left ureteral stent placement 4.8 [place] contour Description of procedure: Patient is taken the operative suite and correctly identified. Once anesthesia was obtained she was placed in dorsal lithotomy position and prepped and draped usual sterile fashion. Twenty-two [place] scope was inserted in the bladder. There are no tumors noted. Left ureteral orifice was cannulated with a guidewire. The orifice was dilated with an 8/10 dilator. Mini flexible ureteroscope was inserted. The stone was visualized at the UPJ area which was impacted with the stone. We used a holmium laser fiber to fragment the stone in retrieved some of the pieces. This stone overall is extremely small. Nonetheless there was no residual stones noted in the ureter. Pyelogram was performed to confirm placement of the stent and a 4.8 [place] contour stent was placed with the proximal end coiled in the renal pelvis and the distal in the bladder. Bladder was drained. 2% viscous lidocaine was inserted urethra patient is taken recovery room stable condition. She will follow up in a week's time for stent removal. Anesthesia: GLMA Surgeon: Kev Orozco MD Drains: Yes Packing: No Pathology: yes Complications: No immediate complications Condition: stable Disposition: PACU
[2020-09-06] MEDS: fentaNYL CITRATE INJ (*CRX) 100 MCG/2 ML VIAL 25 MCG IV PUSH ×2 (14:05→14:09)
[2020-09-06] MEDS: diphenhydrAMINE HCl INJ 50 MG/ML VIAL 25 MG IV PUSH (15:11)
[2020-09-06] MEDS: oxyCODONE HCL (*CRX) 5 MG TAB IR PO (15:24)
[2020-09-06] MEDS: HYOSCYAMINE SULFATE 0.125 MG TABLET PO (16:19)
--- NOTE | 2020-09-06 17:08 | SUR.PHASEII ---
Patient was nauseated and experiencing a lot of pain in Phase 2. RN got an order for Benadryl, Dilaudid, and Levsin. Patient felt much better by the time of discharge.
== END 2020-09-06 17:00 | disposition home or self-care (01) ==
LOC: ANHED 09:38 → ANHSURGERY 10:01
PROVIDERS: Emergency Provider Emergency Medicine; Visit Provider Urology
PROC: (CPT 52352; principal; 2020-09-06 13:00)
PROC: (CPT 52356; 2020-09-06 13:00)
DX: N20.2 Calculus of kidney with calculus of ureter (principal); E66.01 Morbid (severe) obesity due to excess calories; Z68.42 Body mass index [BMI] 45.0-49.9, adult; F17.200 Nicotine dependence, unspecified, uncomplicated
CPT/HCPCS: 52356; 36415; 74018; 74420; 80048; 81001; 81025; 82365; 85025; 88300; 96361; 96374; 96375; 99285; A9270; C1769; C2617; J0690; J1170; J1200; J2250; J2405; J2704; J3010; J7030; J7120; Q9966

== ENCOUNTER 2020-09-07 19:27 | Emergency (ER) | payer OTHER, SELFPAY ==
[2020-09-07] VITALS (13 sets, daily range): BP systolic 111–138; BP diastolic 53–105; PULSE 66; RESP 18; TEMP 36.8; O2SAT 93–100
--- NOTE | ~2020-09-07 | XR_ITS ---
XR abdomen/kub 1V 09/07/2020 21:00 INDICATION: Difficulty urinating. Stent placement. TECHNIQUE: KUB COMPARISON: 09/06/2020 FINDINGS: Bowel gas pattern is normal. There is a left internal ureteral stent in expected position. There is no evidence of free air, mass, organomegaly, ascites or obstruction. No abnormal calculi ar e seen. The bones appear intact. Moderate colonic fecal loading. IMPRESSION: 1: No acute abdominal abnormality identified. Reviewed, dictated and finalized at location A.
--- NOTE | 2020-09-07 20:55 | ED.ABDPAIN ---
HPI - Abdominal Pain General Chief Complaint: Urogenital-Female Stated Complaint: pain after stents place for kidney stones Time Seen by Provider: 09/07/20 19:38 Source: patient Mode of arrival: ambulatory Limitations: no limitations History of Present Illness HPI narrative: Patient is a 20 year old female who presents with left abdominal pain. Patient reports ureteral stent placement yesterday and reports stabbing pain with urinating and nausea from pain. Patient reports she has been taking hydrocodone and zofran without relief. Patient is tearful, denies other significant medical history. MD elicited complaint: abdominal pain Related Data Allergies Allergy/AdvReac Type Severity Reaction Status Date / Time No Known Allergies Allergy Verified 09/07/20 21:08 Review of Systems Review of Systems: Narrative: CONSTITUTIONAL: Denies fever, chills, or sweats. EYES: Denies visual changes, redness, or discharge. ENT: Denies rhinorrhea, congestion, sore throat, or otalgia. CARDIOVASCULAR: Denies chest pain, palpitations, or edema. RESPIRATORY: Denies cough or dyspnea. GASTROINTESTINAL: Denies abdominal pain, nausea, vomiting, or diarrhea. GENITOURINARY: Left flank/abdominal pain, dysuria. SKIN: Denies rash or itching. MUSCULOSKELETAL: Denies back pain, joint pain, or myalgia. NEUROLOGIC: Denies headache, numbness, dizziness, or weakness. PSYCHIATRIC: Denies anxiety or depression. [facility] Past Medical History Medical History Kidney stone Obesity Tooth abscess Social History Social History (Updated 09/07/20 @ 21:03 by JONATHAN Don) Smoking status: Current every day smoker Tobacco type: cigarettes Alcohol intake: never Substance use: never Gender identity (if verbalized by the patient): Female Comments At the time of signature, I have reviewed and agree with nursing past medical, surgical, social, and family history unless otherwise noted. Please see nursing chart for further information. There is no relevant family history pertinent to the presenting complaint. Exam Narrative: Exam Narrative: GENERAL: Well-appearing, well-nourished, and in no acute distress. HEAD: Normocephalic, atraumatic. EYES: No redness or drainage. ENT: Mucous membranes pink and moist. CHEST: No respiratory distress. HEART: Regular rate and rhythm. GI: Soft, nontender without rebound, or guarding. No distention. Bowel sounds normal in all quadrants. MUSCULOSKELETAL: No bony tenderness. EXTREMITIES: Normal range of motion. No edema. SKIN: Warm, dry, no rash. NEURO: No focal deficits. Alert and oriented x3. Gait steady. PSYCH: Normal affect. No signs of depression or anxiety. Course Reevaluation(s) Reevaluation #1: Patient is tearful and states I can't do this . Patient given Toradol without relief. Discussed with Dr. Duran who suggests 0.5mg Dilaudid. Reevaluation #2: Patient reports decreased pain at this time, patient to be discharged to home at this time. Consultations Consultation #1: Spoke with Dr. Mckeon who advises patient to be given IV Toradol and sent home with prescription of same and call office tomorrow. Date: 09/07/20 Time: 21:39 Vital Signs Vital signs: Vital Signs Temperature 36.8 C 09/07/20 19:55 Pulse Rate 66 09/07/20 19:55 Respiratory Rate 18 09/07/20 19:55 Blood Pressure 138/68 09/07/20 19:55 Pulse Oximetry 100 09/07/20 19:55 Temperature 36.8 C 09/07/20 19:55 Pulse Rate 66 09/07/20 19:55 Respiratory Rate 18 09/07/20 19:55 Blood Pressure 116/53 L 09/07/20 21:05 Pulse Oximetry 99 09/07/20 21:06 Reviewed-patient is informed that they may have pre-hypertension or hypertension based on a blood pressure reading. I recommend the patient call the primary care provider listed on their discharge instructions or a physician of their choice this week to arrange follow-up for further evaluation of possible pre-hyperte
[2020-09-07] MEDS: MORPHINE SULFATE (*CRX) 4 MG/ML INJ IM (21:06)
[2020-09-07] MEDS: KETOROLAC 30 MG/ML VIAL (*BKC) IV PUSH (21:50)
[2020-09-07] MEDS: ONDANSETRON INJ 4 MG/2 ML VIAL IV PUSH (22:07)
[2020-09-07] MEDS: HYDROmorphone HCL INJ (*CRX) 1 MG/ML SYR 0.5 MG IV PUSH (22:07)
== END 2020-09-07 22:47 | disposition home or self-care (01) ==
PROVIDERS: Emergency Provider Nurse Practitioner
DX: T83.84XA Pain due to genitourinary prosthetic devices, implants and grafts, initial encounter (principal); Z87.442 Personal history of urinary calculi; Z96.0 Presence of urogenital implants; E66.9 Obesity, unspecified; Z68.42 Body mass index [BMI] 45.0-49.9, adult; F17.210 Nicotine dependence, cigarettes, uncomplicated
CPT/HCPCS: 74018; 96372; 96374; 96375; 99284; J1170; J1885; J2270; J2405

== ENCOUNTER 2020-09-09 11:47 | Emergency (ER) | payer OTHER, SELFPAY ==
[2020-09-09 11:50] VITALS: BP 133/79; PULSE 79; RESP 21; TEMP 36.1; O2SAT 98
[2020-09-09 12:04] LABS: Basophils Absolute Auto 0.1 K/mm3 (0.0-0.1); Basophils Percent Auto 0.7 % (0.2-1.2); Eosinophils Absolute Auto 0.1 K/mm3 (0-0.3); Eosinophils Percent Auto 0.7 % (0-4.4); Hematocrit 37.9 % (37.0-47.0); Hemoglobin 12.2 g/dL (12.0-15.0); Immature Granulocyte Absolute 0.03 K/mm3 (0.00-0.031); Immature Granulocyte Percent A 0.4 % (0-0.5); Lymphocytes Percent Auto 35.4 % (18.3-44.2); Mean Corpuscular HGB Conc 32.2 g/dl (32-36); Mean Corpuscular Hemoglobin 28.2 pg (26-34); Mean Corpuscular Volume 87.7 fl (80-100); Mean Platelet Volume 8.9 fl (7.4-10.4); Monocytes Absolute Auto 0.3 K/mm3 (0.1-0.6); Monocytes Percent Auto 4.8 % (2.6-8.5); Neutrophils Absolute Auto 4.1 K/mm3 (1.3-6.7); Platelet Count Result 200 k/mm3 (150-375); Red Blood Count 4.32 M/mm3 (4.2-5.4); Red Cell Distribution Width 14.6 % (11.5-14.5); White Blood Count 7.1 K/mm3 (4.5-10.0)
[2020-09-09 12:15] LABS: Alanine Aminotransferase 32 U/L (4-35); Albumin Level 4.1 g/dL (3.5-5.1); Alkaline Phosphatase 104 U/L (38-126); Anion Gap 4 mmol/L (8-16); Aspartate Amino Transferase 39 U/L (14-36); Bilirubin,Total 0.4 mg/dL (0.2-1.3); Blood Urea Nitrogen 12 mg/dL (7-17); Calcium 9.4 mg/dL (8.4-10.2); Carbon Dioxide 28 mmol/L (22-30); Chloride 109 mmol/L (98-107); Estimated CRCL calculation 112 ml/min; Estimated Glomerular Filt Rate > 60; Glucose 98 mg/dL (65-105); Lipase 51 U/L (23-300); Potassium 4.5 mmol/L (3.4-5.0); Sodium 141 mmol/L (137-145)
[2020-09-09] MEDS: SODIUM CHLORIDE 0.9% IV 1,000 ML 999 ML IV CONT (12:26)
[2020-09-09 12:36] LABS: Add Urine Microscopic? YES; Appearance Urine Cloudy (Clear); Bilirubin Urine Negative (Negative); Blood Urine 3+ (Negative); Color Urine Amber (Yellow); Glucose Urine UA Negative (Negative); Ketones Urine 1+ mg/dL (Negative); Leukocyte Esterase Ur 2+ LEU/UL (Negative); Mucus Urine Rare /lpf; Nitrate Urine Negative (Negative); Protein Urine 2+ mg/dL (Negative); RBC Urine >75 /hpf (0-2); Squamous Epithelial Cell Urine Many /hpf (Few); Urobilinogen Urine Negative mg/dL (<2.0); WBC Urine 51-75 /hpf
--- NOTE | 2020-09-09 12:38 | ED.NAVMDI ---
HPI - Nausea/Vomiting/Diarrhea General Chief complaint: Abdominal Pain Stated complaint: abdominal pain, n/v/d Time Seen by Provider: 09/09/20 12:08 Source: patient Mode of arrival: ambulatory Limitations: no limitations History of Present Illness HPI Narrative: Patient is a 19-year-old female complaining of nausea, vomiting and diarrhea that started yesterday. Patient states that her vomit is nonbilious nonbloody. Her diarrhea is loose watery. Patient states that she was recently seen here due to kidney stone, stent was placed this past week. Patient states she came back few days ago for pain in her flank area accompanied by hematuria called her urologist and was prescribed a medication which she thinks could be causing her nausea and vomiting and diarrhea. Patient currently denies any pain. Denies flank pain or abdominal pain. Related Data Allergies Allergy/AdvReac Type Severity Reaction Status Date / Time No Known Allergies Allergy Verified 09/09/20 12:07 Review of Systems Review of Systems: All systems reviewed & are unremarkable except as noted in HPI and below Constitutional: Constitutional: Denies body ache(s), Denies chills, Denies excessive sweating, Denies fatigue, Denies fever(s), Denies headache(s), Denies lethargy, Denies malaise, Denies weakness and Denies weight loss Eyes: Eyes: Denies blurry vision, Denies change in vision and Denies loss of vision ENT: Denies dizziness, Denies ear discharge, Denies headache(s), Denies lip swelling, Denies epistaxis, Denies nasal congestion, Denies neck pain, Denies throat swelling and Denies tongue swelling Cardiovascular: Cardiovascular: Denies chest pain, Denies chest pain at rest, Denies chest pain with activity, Denies diaphoresis, Denies rapid heart rate, Denies edema, Denies irregular heart rhythm, Denies lightheadedness, Denies palpitations, Denies dyspnea and Denies dyspnea on exertion Respiratory: Respiratory: Denies chest congestion, Denies cough, Denies hemoptysis, Denies dyspnea and Denies dyspnea on exertion Gastrointestinal: Gastrointestinal: Denies abdominal pain, Denies melena, Denies hematochezia, Denies diarrhea and Denies hematemesis Musculoskeletal: Musculoskeletal: Denies abnormal gait, Denies deformity, Denies joint swelling, Denies limited range of motion, Denies neck pain and Denies numbness Neurologic: Denies Abnormal speech present, Denies abnormal gait, Denies confusion, Denies dizziness, Denies headache(s), Denies focal weakness, Denies loss of vision, Denies numbness, Denies Other visual disturbances, Denies Sensory deficit (Neuro) and Denies weakness Psychiatric: Psychiatric: Denies confusion, Denies depression, Denies auditory hallucinations, Denies homicidal ideation and Denies suicidal ideation Endocrine: Endocrine: Denies cold intolerance, Denies excessive sweating, Denies fatigue, Denies heat intolerance and Denies palpitations Hematologic/Lymphatic: Hematologic/Lymphatic: Denies easy bleeding and Denies easy bruising Allergic/Immunologic: Allergic/Immunologic: Denies lip swelling, Denies throat swelling and Denies tongue swelling PMFSH Past Medical History Medical History Kidney stone Obesity Tooth abscess Social History Social History Smoking status: Current every day smoker Tobacco type: cigarettes Alcohol intake: never Substance use: never Gender identity (if verbalized by the patient): Female Exam Const: General: cooperative, healthy appearing, comfortable, no acute distress, well developed, alert and awake; No confusion Orientation/consciousness: oriented to person, oriented to place, oriented to time, patient oriented x3 and No confusion Limitations: no limitations HENMT: Head: normal to inspection, normocephalic and atraumatic Ears: hearing grossly normal bilaterally, TM normal on the right and TM normal
[2020-09-09 13:22] VITALS: BP 110/58; PULSE 57; RESP 18; O2SAT 100
[2020-09-09] MEDS: ONDANSETRON INJ 4 MG/2 ML VIAL IV PUSH (13:22)
[2020-09-09 15:06] VITALS: BP 129/79; PULSE 60; RESP 18; O2SAT 100
== END 2020-09-09 15:10 | disposition home or self-care (01) ==
PROVIDERS: Emergency Medicine; Emergency Provider Emergency Medicine
DX: N39.0 Urinary tract infection, site not specified (principal); R11.2 Nausea with vomiting, unspecified; R19.7 Diarrhea, unspecified; E66.9 Obesity, unspecified; Z68.42 Body mass index [BMI] 45.0-49.9, adult; Z87.442 Personal history of urinary calculi; Z96.0 Presence of urogenital implants
CPT/HCPCS: 36415; 80053; 81001; 81025; 83690; 85025; 87086; 96361; 96374; 99284; J2405; J7030

== ENCOUNTER 2022-01-22 11:58 | Emergency (ER) | payer OTHER, SELFPAY ==
[2022-01-22 11:59] VITALS: TEMP 36.5
[2022-01-22 12:02] VITALS: BP 132/65; PULSE 66; RESP 15; TEMP 36.5; O2SAT 100
[2022-01-22] MEDS: ONDANSETRON HCL ODT 4 MG TABLET PO (13:07)
--- NOTE | 2022-01-22 13:10 | PC.NURSE ---
Patient called out project consultant light in pain. Technical Service Engineer to bedside to find patient vomiting in trash can. SUNDAY Valladares notified and verbal order for Zofran given. Technical Service Engineer administered Zofran ODT as ordered and gave patient an ice pack for pain.
--- NOTE | 2022-01-22 14:18 | ED.DENTAL ---
HPI - Dental/Oral General Chief complaint: Dental/Oral <Jacquelyn Cormier PA-C - Last Filed: 01/22/22 17:23> Stated complaint: right lower toothache <ASH Ham Last Filed: 01/22/22 17:23> Time Seen by Provider: 01/22/22 12:52 <ASH Ham Last Filed: 01/22/22 17:23> Source: patient <ASH Ham Last Filed: 01/22/22 17:23> Mode of arrival: ambulatory <ASH Ham Last Filed: 01/22/22 17:23> Limitations: no limitations <ASH Ham Last Filed: 01/22/22 17:23> History of Present Illness HPI Narrative: Patient is a 21-year-old female who presents the ED with report of right lower dental pain. Patient reports she fractured one of her right lower molars several years ago. Over the last couple days she has had increasing pain to tooth/gum. Minimal swelling to right facial cheek. She last took ibuprofen this morning around 9 AM. She has an appointment to see a dentist in 2 months. She does report some nausea and subjective fevers, but denies any difficulty swallowing or breathing. <ASH Ham Last Filed: 01/22/22 17:23> Teeth map: 1. fractured tooth <ASH Ham Last Filed: 01/22/22 17:23> Related Data Allergies/adverse reactions: Allergies Allergy/AdvReac Type Severity Reaction Status Date / Time No Known Allergies Allergy Verified 09/09/20 12:07 <ASH Ham Last Filed: 01/22/22 17:23> Review of Systems Review of Systems: CONSTITUTIONAL: Reports subjective fevers. ENT: Reports R lower dental pain. Denies dysphagia, rhinorrhea, congestion, sore throat, or otalgia. CARDIOVASCULAR: Denies chest pain. RESPIRATORY: Denies dyspnea. GASTROINTESTINAL: Reports nausea due to pain. Denies abdominal pain, vomiting, or diarrhea. <Jacquelyn Cormier PA-C - Last Filed: 01/22/22 17:23> All systems reviewed & are unremarkable except as noted in HPI and below <Jacquelyn Cormier PA-C - Last Filed: 01/22/22 17:23> PMFSH Past Medical History Medical History: Medical History Kidney stone Obesity Tooth abscess <Jacquelyn Cormier PA-C - Last Filed: 01/22/22 17:23> Surgical History Surgical History: Surgical History (Updated 01/22/22 @ 14:20 by Jacquelyn Cormier PA-C) History of ureter stent <Jacquelyn Cormier PA-C - Last Filed: 01/22/22 17:23> Social History Social History: Social History Smoking status: Current every day smoker Tobacco type: cigarettes Alcohol intake: never Substance use: never Gender identity (if verbalized by the patient): Female <Jacquelyn Cormier PA-C - Last Filed: 01/22/22 17:23> Exam Narrative: GENERAL: Well appearing, well-nourished, non-toxic, in mild acute distress. HEAD: Normocephalic, atraumatic. EYES: PERRL/EOMI, conjunctivae clear bilaterally. THROAT: Pharynx clear, no erythema or exudate. MMs moist. Fractured tooth in right lower second molar. Erythema and tenderness to palpation to surrounding gumline. No focal abscess or palpable fluctuance. Minimal swelling to right facial cheek. NECK: Supple. No adenopathy, no masses. No swelling. RESPIRATORY: Airway patent, respirations nonlabored. CARDIOVASCULAR: Regular rate and rhythm without murmurs, rubs, or gallops. Radial pulses 2+ and equal bilaterally. MUSCULOSKELETAL: Moves all extremities. Strength/ROM intact without gross deformities. SKIN: Warm, dry, normal color. No rashes. NEURO: A&O X3. Speech clear. Cranial nerves II-XII grossly intact. Steady gait. No ataxic movements. PSYCHIATRIC: Tearful. Normal interaction. <Jacquelyn Cormier PA-C - Last Filed: 01/22/22 17:23> Course SHOP CLERK/PA Physician Supervision For this patient encounter, I reviewed the SHOP CLERK or PA documentation
[2022-01-22] MEDS: KETOROLAC (*BKC) 60 MG/2 ML VIAL IM (14:23)
== END 2022-01-22 14:42 | disposition home or self-care (01) ==
PROVIDERS: Emergency Provider Emergency Medicine
DX: K08.89 Other specified disorders of teeth and supporting structures (principal); K03.81 Cracked tooth; Z87.442 Personal history of urinary calculi; E66.9 Obesity, unspecified; Z68.41 Body mass index [BMI] 40.0-44.9, adult; F17.210 Nicotine dependence, cigarettes, uncomplicated
CPT/HCPCS: 96372; 99283; A9270; J1885